=== PATIENT | female | born 1940 | race Caucasian/White ===

== ENCOUNTER → 2018-05-09 | Outpatient (CLI) | payer MEDICARE, MEDICAID ==
--- NOTE | 2018-05-09 11:42 | Diagnostic Imaging Report ---
INDICATION: Routine screening. COMPARISON: Comparison is made with prior mammograms from 04/07/2017 and 04/06/2016. TECHNIQUE: 2D and 3D bilateral screening mammography was performed with computer-aided detection (CAD) system. FINDINGS: Scattered fibroglandular densities are identified bilaterally. Benign-appearing parenchymal and vascular calcifications are identified bilaterally. The parenchymal pattern is stable. No dominant mass or malignant-appearing microcalcifications are seen. The axillae are unremarkable. IMPRESSION: No mammographic features suspicious for malignancy are identified. ACR BI-RADS Category 2: Benign findings. Result letter will be mailed to the patient. Note: At least 10% of breast cancer is not imaged by mammography. Dictated by: Dictated on workstation # [id number]
== END ==
LOC: RAD 09:26
PROVIDERS: ATTEND Internal Medicine
DX: Z12.31 Encounter for screening mammogram for malignant neoplasm of breast (principal)
CPT/HCPCS: 77067

== ENCOUNTER → 2019-05-10 | Outpatient (CLI) | payer MEDICARE, MEDICAID ==
--- NOTE | 2019-05-13 09:03 | Diagnostic Imaging Report ---
INDICATION: Screening The current study was also evaluated with a Computer Aided Detection (CAD) system. 3-D Tomographic imaging was also performed. Comparison made with prior examination of 05/09/2018, 04/07/2017, and 04/06/2016. FINDINGS: There are scattered fibroglandular densities bilaterally. There is unchanged architectural distortion in the upper-outer right breast where there also appears be a surgical clip. There are scattered vascular benign type calcifications. There is no new dominant mass, spiculated lesion or suspicious calcification identified. Skin, nipples and axilla are unremarkable. IMPRESSION: Category 2 benign. ACR BI-RADS Category 2: Benign findings. Result letter will be mailed to the patient. Note: At least 10% of breast cancer is not imaged by mammography. Dictated by: Dictated on workstation # [id number]
== END ==
LOC: RAD 09:55
PROVIDERS: ATTEND Pediatrics
DX: Z12.31 Encounter for screening mammogram for malignant neoplasm of breast (principal)
CPT/HCPCS: 77067

== ENCOUNTER → 2020-05-11 | Outpatient (CLI) | payer MEDICARE, MEDICAID ==
--- NOTE | 2020-05-11 10:43 | Diagnostic Imaging Report ---
INDICATION: Routine screening. COMPARISON: 05/10/2019 and 05/09/2018. TECHNIQUE: 2D and 3D bilateral screening mammography was performed with CAD. FINDINGS: Scattered fibroglandular densities are identified bilaterally. Post biopsy changes with architectural distortion in the upper outer right breast are again noted. No dominant mass or malignant appearing microcalcifications are seen. There are benign parenchymal and vascular calcifications bilaterally. Axillae are unremarkable. IMPRESSION: No mammographic features suspicious for malignancy are identified. ACR BI-RADS Category 2: Benign findings. Result letter will be mailed to the patient. Note: At least 10% of breast cancer is not imaged by mammography. Dictated by: Dictated on workstation # [id number]
== END ==
LOC: RAD 08:39
PROVIDERS: ATTEND Pediatrics
DX: Z12.31 Encounter for screening mammogram for malignant neoplasm of breast (principal)
CPT/HCPCS: 77063; 77067

== ENCOUNTER → 2021-01-05 | Outpatient (CLI) | payer MEDICARE, MEDICAID ==
--- NOTE | 2021-01-05 10:27 | Diagnostic Imaging Report ---
INDICATION: Postmenopausal screening for osteoporosis. COMPARISON: None. FINDINGS: AP Spine L1-L4: [BMD (g/cm2): 1.147] [T-Score: -0.4] [Z-Score: 0.2] [BMD Previous: NA] [BMD % Change: NA] LT Hip Neck: [BMD (g/cm2): 0.867] [T-Score: -1.2] [Z-Score: 0.2] LT Hip Total: [BMD (g/cm2):0.863] [T-Score:-0.4] [Z-Score: 0.9] [BMD Previous: NA] [BMD % Change: NA] RT Hip Neck: [BMD (g/cm2):0.783] [T-Score:-1.8] [Z-Score:-0.4] RT Hip Total: [BMD (g/cm2):0.896] [T-score:-0.9] [Z-Score:0.3] [BMD Previous:NA] [BMD % Change:NA] *Indicates significant change from prior examination based on 95% confidence level. World Health Organization criteria for BMD interpretation classify patients as Normal (T-score at or above -1.0), Osteopenic (T-score between -1.0 and -2.5) or Osteoporotic (T-score at or below -2.5). LIMITATIONS AND MODIFICATION: None. FRACTURE RISK (FRAX SCORE): The ten year probability of (%): Major Osteoporotic Fracture: [NA] Hip Fracture: [NA] IMPRESSION: 1. Normal bone mineral density. 2. Baseline examination. 3. See below National Osteoporosis Foundation guidelines on when to potentially initiate pharmacologic therapy. Based on the National Osteoporosis Foundation Guidelines, pharmacologic treatment should be initiated in any of the following, unless clinical conditions suggest otherwise: * Any patient with prior fragility fracture of the hip or vertebrae. A spine fracture indicates 5X risk for subsequent spine fracture and 2X risk for subsequent hip fracture. * Osteoporosis (T-score <-2.5). * Postmenopausal women and men age 50 and older with low bone mass/osteopenia (T-score between -1.0 and -2.5) by DXA and 10-year major osteoporotic fracture greater than 20% or a 10-year probability of hip fracture greater than 3%. These fracture risks are supplied above in the FRAX score, if applicable. * Clinician judgement and/or patient preferences may indicate treatment for people with 10-year fracture probabilities above or below these levels. Dictated by: Dictated on workstation # [id number]
== END ==
LOC: RAD 09:30
PROVIDERS: ATTEND Pediatrics
DX: Z13.820 Encounter for screening for osteoporosis (principal); M81.0 Age-related osteoporosis without current pathological fracture; Z78.0 Asymptomatic menopausal state
CPT/HCPCS: 77080

== ENCOUNTER → 2021-05-12 | Outpatient (CLI) | payer MEDICARE, MEDICAID ==
--- NOTE | 2021-05-12 11:19 | Diagnostic Imaging Report ---
INDICATION: Routine screening. COMPARISON: 05/11/2020 and 05/10/2019. TECHNIQUE: 2D and 3D bilateral screening mammography was performed with CAD. FINDINGS: Scattered fibroglandular densities are identified bilaterally. Post biopsy changes in the outer right breast are again noted and appear stable. Scattered benign parenchymal and vascular calcifications are noted bilaterally. No dominant mass or malignant-appearing microcalcifications are seen. The axillae are unremarkable. IMPRESSION: No mammographic features suspicious for malignancy are identified. ACR BI-RADS Category 2: Benign findings. Result letter will be mailed to the patient. Note: At least 10% of breast cancer is not imaged by mammography. Dictated by: Dictated on workstation # [id number]
== END ==
LOC: RAD 10:00
PROVIDERS: ATTEND Pediatrics
DX: Z12.31 Encounter for screening mammogram for malignant neoplasm of breast (principal)
CPT/HCPCS: 77063; 77067

== ENCOUNTER 2021-05-21 10:40 | Outpatient (CLI) | payer MEDICARE, MEDICAID ==
[~2021-05-21] VITALS: Ht 170.2 cm; Wt 111.1 kg
[2021-05-21 10:47] VITALS: BP 93/49
[2021-05-21] MEDS ORDERED: BAMLANIVIMAB 700 MG/ETESEVIMAB 1,400 MG IN NS IV ONE ×3 (11:15)
[2021-05-21] MEDS ORDERED: ONDANSETRON 4 MG/2 ML (SDV) Z0FRAN IV PRN (11:15)
[2021-05-21] MEDS ORDERED: diphenhydrAMINE 50 MG/ML INJ (BENADRYL) IV PRN (11:15)
[2021-05-21] MEDS ORDERED: ACETAMINOPHEN 500 MG TAB (TYLENOL) PO PRN (11:15)
[2021-05-21] MEDS ORDERED: EPINEPHrine INJECTION 1 MG/ML AMP IM PRN (11:15)
[2021-05-21 12:20] VITALS: BP 100/54
== END 2021-05-21 12:54 | disposition home or self-care (01) ==
LOC: INFUSION 10:40
PROVIDERS: ATTEND Pediatrics
DX: U07.1 COVID-19 (principal)

== ENCOUNTER 2021-05-24 07:35 | Emergency (ER) | payer MEDICARE, MEDICAID ==
[~2021-05-24] VITALS: Ht 170 cm; Wt 111.0 kg
[2021-05-24 08:13] LABS: BASOPHILS % (AUTO) 1 % (0-10); EOSINOPHILS # (AUTO) 0.3 10^3/uL (0.0-0.3); EOSINOPHILS % (AUTO) 4 % (0-10); HEMATOCRIT 43 % (35-52); HEMOGLOBIN 14.2 g/dL (11.5-16.0); LYMPHOCYTES # (AUTO) 2.9 10^3/uL (1.0-4.0); LYMPHOCYTES % (AUTO) 36 % (12-44); MEAN CORPUSCULAR HEMOGLOBIN 33 pg (25-34); MEAN CORPUSCULAR HGB CONC 33 g/dL (32-36); MEAN CORPUSCULAR VOLUME 100 fL (80-99); MEAN PLATELET VOLUME 9.6 fL (9.0-12.2); MONOCYTES # (AUTO) 0.9 10^3/uL (0.0-1.0); MONOCYTES % (AUTO) 12 % (0-12); NEUTROPHILS # (AUTO) 3.9 10^3/uL (1.8-7.8); NEUTROPHILS % (AUTO) 47 % (42-75); PLATELET COUNT 341 10^3/uL (130-400); WHITE BLOOD COUNT 8.1 10^3/uL (4.3-11.0)
[2021-05-24] MEDS ORDERED: LACTATED RINGERS 1,000 ML IV ONE (08:15)
[2021-05-24 08:22] LABS: ALBUMIN 3.3 GM/DL (3.2-4.5); POTASSIUM 3.8 MMOL/L (3.6-5.0)
[2021-05-24 08:23] LABS: CALCIUM 8.4 MG/DL (8.5-10.1)
[2021-05-24 08:24] LABS: TOTAL PROTEIN 6.3 GM/DL (6.4-8.2)
[2021-05-24 08:26] LABS: BILIRUBIN,TOTAL 0.5 MG/DL (0.1-1.0)
[2021-05-24 08:28] LABS: CREATININE SERUM 0.7 MG/DL (0.60-1.30)
--- NOTE | 2021-05-24 08:31 | Diagnostic Imaging Report ---
Indication: Diarrhea, weakness, this is a COVID patient. I have no priors. Findings: There are multifocal patchy vague bilateral infiltrates, which while nonspecific are congruent with the provided history of COVID. No effusion, pneumothorax or failure pattern. Impression: Bilateral multifocal pulmonary infiltrates without pleural pathology or failure pattern. Dictated by: Dictated on workstation # [id number]
--- NOTE | 2021-05-24 08:40 | ED General ---
General Chief Complaint: COVID19 Suspect/Confirmed Stated Complaint: COVID + Nursing Triage Note: PT ARRIVED PER [facility] TODAY, PT COVID + ON 05/19/21, STATES ILLNESS STARTED ON 05/13/21. DENIES FEVERS OR COUGH AT THIS X. Source of Information: Patient, EMS, Old Records Exam Limitations: No Limitations History of Present Illness Date Seen by Provider: May 24, 2021 Time Seen by Provider: 07:40 Initial Comments This 81-year-old woman with confirmed COVID-19 illness presents to the emergency room with complaints of diarrhea, weakness, and dizziness today. She was diagnosed on May 19 and has been ill since May 13. She did receive a monoclonal antibody infusion on the . She is feeling better at this time. Vital signs are stable and she is not hypoxic. She reports having a profound episode of diarrhea at the time of the weakness and dizziness. She is not in any significant pain. She was fully vaccinated. She also complains of sensation of paresthesia that seems migratory. At times it feels like it is in her sinuses. At other times it feels like it is in her chest and radiating through her left arm or up with her neck. This has been ongoing for the past few days. Allergies and Home Medications Allergies Coded Allergies: codeine (Verified Allergy, Unknown, 05/21/21) Patient Home Medication List Home Medication List Reviewed: Yes Cefdinir (Cefdinir) 300 Mg Capsule, 300 MG PO BID Prescribed by: MARBIN MILIAN on 05/24/21 1134 Hyoscyamine Sulfate (Levsin-Sl) 0.125 Mg Tab.subl, 0.125 MG SL Q4H PRN for CRAMPS Prescribed by: MARBIN MILIAN on 05/24/21 1134 Review of Systems Review of Systems Constitutional: see HPI EENTM: no symptoms reported Respiratory: no symptoms reported Cardiovascular: see HPI Gastrointestinal: see HPI Genitourinary: no symptoms reported : No Musculoskeletal: no symptoms reported Skin: no symptoms reported Psychiatric/Neurological: See HPI Hematologic/Lymphatic: No Symptoms Reported Immunological/Allergic: no symptoms reported Past Oqpgtvv-Hkbbog-Rdseti Hx Patient Social History Tobacco Use?: No Smoking Status: Former Smoker Substance use?: No Alcohol Use?: No Seasonal Allergies Seasonal Allergies: No Past Medical History Surgeries: No (None reported) Respiratory: Yes (COVID-23 May 2021) Cardiac: Yes High Cholesterol Neurological: No : No Genitourinary: No Gastrointestinal: No Musculoskeletal: No Endocrine: No HEENT: No Cancer: No Psychosocial: No Integumentary: No Physical Exam Vital Signs Vital Signs - First Documented 05/24/21 07:35 Temp 36.4 Pulse 71 Resp 18 B/P (MAP) 128/74 (92) Pulse Ox 95 Capillary Refill : Less Than 3 Seconds Height, Weight, BMI Height: '" Weight: lbs. oz. kg; 38.00 BMI Method: General Appearance: WD/WN, Mild Distress (Tearful), Obese Eyes: Bilateral Eye Normal Inspection, Bilateral Eye PERRL, Bilateral Eye EOMI HEENT: PERRL/EOMI, Normal ENT Inspection, Other (Oropharynx somewhat dry) Neck: Normal Inspection; No JVD Respiratory: Lungs Clear, Normal Breath Sounds, No Accessory Muscle Use Cardiovascular: Regular Rate, Rhythm, No Edema, No Murmur Gastrointestinal: No Organomegaly, No Pulsatile Mass, Non Tender Genital/Rectal: No Normal Genital Exam Extremity: No Pedal Edema Neurologic/Psychiatric: Alert, Oriented x3, No Motor/Sensory Deficits, Normal 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, 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 Norm as Tested Skin: Normal Color, Warm/Dry Progress/Results/Core Measures Suspected Sepsis SIRS Temperature: Pulse: 71 Respiratory Rate: 18 Laboratory Tests 05/24/21 07:52: White Blood Count 8.1 Blood Pressure 128 /74 Mean: 92 Laboratory Tests 05/24/21 07:52: Creatinine 0.70, INR Comment 1.0, Platelet Count 341, Total Bilirubin 0.5 Results/Orders Lab Results Laboratory Tests Test 05/24/21 07:52 05/24/21 11:02 Range/Units White Blood Count 8.1 4.3-11.0 10^3/uL Red Blood Count 4.31 3.80-5.11 10^6/uL Hemoglobin 14.2 11.5-16.0 g/dL Hematocrit 43 35-52 % Mean Corpuscular Volume 100 H 80-99 fL Mean Corpuscular Hemoglobin 33 25-34 pg Mean Corpuscular Hemoglobin Concent 33 32-36 g/dL Red Cell Distribution Width 12.2 10.0-14.5 % Platelet Count 341 130-400 10^3/uL Mean Platelet Volume 9.6 9.0-12.2 fL Immature Granulocyte % (Auto) 1 % Neutrophils (%) (Auto) 47 42-75 % Lymphocytes (%) (Auto) 36 12-44 % Monocytes (%) (Auto) 12 0-12 % Eosinophils (%) (Auto) 4 0-10 % Basophils (%) (Auto) 1 0-10 % Neutrophils # (Auto) 3.9 1.8-7.8 10^3/uL Lymphocytes # (Auto) 2.9 1.0-4.0 10^3/uL Monocytes # (Auto) 0.9 0.0-1.0 10^3/uL Eosinophils # (Auto) 0.3 0.0-0.3 10^3/uL Basophils # (Auto) 0.0 0.0-0.1 10^3/uL Immature Granulocyte # (Auto) 0.1 0.0-0.1 10^3/uL Prothrombin Time 13.1 12.2-14.7 SEC INR Comment 1.0 0.8-1.4 Activated Partial Thromboplast Time 24 24-35 SEC Sodium Level 137 135-145 MMOL/L Potassium Level 3.8 3.6-5.0 MMOL/L Chloride Level 105 98-107 MMOL/L Carbon Dioxide Level 21 21-32 MMOL/L Anion Gap 11 5-14 MMOL/L Blood Urea Nitrogen 15 7-18 MG/DL Creatinine 0.70 0.60-1.30 MG/DL Estimat Glomerular Filtration Rate 80 BUN/Creatinine Ratio 21 Glucose Level 127 H 70-105 MG/DL Calcium Level 8.4 L 8.5-10.1 MG/DL Corrected Calcium 9.0 8.5-10.1 MG/DL Magnesium Level 2.0 1.6-2.4 MG/DL Total Bilirubin 0.5 0.1-1.0 MG/DL Aspartate Amino Transf (AST/SGOT) 24 5-34 U/L Alanine Aminotransferase (ALT/SGPT) 15 0-55 U/L Alkaline Phosphatase 67 40-136 U/L Myoglobin 59.2 10.0-92.0 NG/ML Troponin I < 0.028 <0.028 NG/ML Total Protein 6.3 L 6.4-8.2 GM/DL Albumin 3.3 3.2-4.5 GM/DL Thyroid Stimulating Hormone (TSH) 3.91 0.35-4.94 UIU/ML Free Thyroxine 1.02 0.70-1.48 NG/DL Urine Color DARK YELLOW Urine Clarity CLOUDY Urine pH 7.5 5-9 Urine Specific [place] 1.015 L 1.016-1.022 Urine Protein NEGATIVE NEGATIVE Urine Glucose (UA) NEGATIVE NEGATIVE Urine Ketones NEGATIVE NEGATIVE Urine Nitrite POSITIVE H NEGATIVE Urine Bilirubin NEGATIVE NEGATIVE Urine Urobilinogen 1.0 < = 1.0 MG/DL Urine Leukocyte Esterase TRACE H NEGATIVE Urine RBC (Auto) NEGATIVE NEGATIVE Urine RBC NONE /HPF Urine WBC 10-25 H /HPF Urine Squamous Epithelial Cells 2-5 /HPF Urine Crystals NONE /LPF Urine Bacteria LARGE H /HPF Urine Casts PRESENT /LPF Urine Hyaline Casts RARE /LPF Urine Mucus SMALL H /LPF Urine Culture Indicated YES My Orders Orders - MARBIN BECKHAM MD Cbc With Automated Diff (05/24/21 08:05) Magnesium (05/24/21 08:05) Chest 1 View, Ap/Pa Only (05/24/21 08:05) Ekg Tracing (05/24/21 08:05) Comprehensive Metabolic Panel (05/24/21 08:05) Myoglobin Serum (05/24/21 08:05) Protime With Inr (05/24/21 08:05) Partial Thromboplastin Time (05/24/21 08:05) O2 (05/24/21 08:05) Monitor-Rhythm Ecg Trace Only (05/24/21 08:05) Ed Iv/Invasive Line Start (05/24/21 08:05) Troponin I [place] (05/24/21 08:05) Lactated Ringers (Lr 1000 Ml Iv Solution (05/24/21 08:15) Free T4 (Free Thyroxine) (05/24/21 08:05) Thyroid Stimulating Hormone (05/24/21 08:05) Ct Head/Cervical Spine Wo (05/24/21 09:40) Ua Culture If Indicated (05/24/21 10:00) Urine Culture (05/24/21 11:02) Ceftriaxone (Rocephin) (05/24/21 11:31) Lidocaine 1% Inj 20 Ml (Xylocaine 1% Inj (05/24/21 11:31) Medications Given in ED Current Medications Medications Dose Ordered Sig/Timothy Route Start Time Stop Time Status Last Admin Dose Admin Ceftriaxone Sodium 1,000 mg STK-MED ONCE .ROUTE 05/24/21 11:31 05/24/21 11:32 DC 05/24/21 11:30 1,000 MG Lactated Ringer's 1,000 ml @ 0 mls/hr Q0M ONCE IV 05/24/21 08:15 05/24/21 08:16 DC 05/24/21 08:13 1,000 MLS/HR Lidocaine HCl 20 ml STK-MED ONCE .ROUTE 05/24/21 11:31 05/24/21 11:32 DC 05/24/21 11:30 2.1 ML Vital Signs/I&O 05/24/21 05/24/21 07:35 11:21 Temp 36.4 Pulse 71 60 Resp 18 18 B/P (MAP) 128/74 (92) 117/77 Pulse Ox 95 95 Capillary Refill : Less Than 3 Seconds Blood Pressure Mean: 92 Progress Note : Time: 18:39 Progress Note Patient was hydrated with a liter of IV fluid. Work-up was relatively unremarkable. She was concerned about these paresthesias in her left arm neck and head. She was offered CT scan which showed no acute abnormalities or no definite explanation for the paresthesias. I suspect the paresthesias are part of her Covid syndrome. Suggestion of urinary tract infection was found on urinalysis. Treatment was started with an injection of Rocephin. ECG Initial ECG Impression Date: May 24, 2021 Initial ECG Impression Time: 07:48 Initial ECG Rate: 68 Initial ECG Rhythm: Normal Sinus Initial ECG Intervals: Normal Initial ECG Impression: Normal Comment Normal sinus rhythm with no ST elevation or depression. No abnormal intervals or axis deviation. Diagnostic Imaging Diagonstic Imaging: Xray Comments Chest x-ray viewed by me and report reviewed. See report below: NAME: DELFIN TY MED REC#: [id number] PT STATUS: REG ER : 1940 PHYSICIAN: MARBIN BECKHAM MD ADMIT DATE: 05/24/21/ER Draft Date of Exam:05/24/21 CHEST 1 VIEW, AP/PA ONLY Indication: Diarrhea, weakness, this is a COVID patient. I have no priors. Findings: There are multifocal patchy vague bilateral infiltrates, which while nonspecific are congruent with the provided history of COVID. No effusion, pneumothorax or failure pattern. Impression: Bilateral multifocal pulmonary infiltrates without pleural pathology or failure pattern. Dictated on workstation # [id number] Dict: 05/24/21827 Trans: 05/24/21830 CV [id number] Interpreted by: MICHEAL SZYMANSKI Diagonstic Imaging: CT Plain Films/CT/US/NM/MRI: c-spine, head Comments NAME: DELFIN TY [facility] REC#: [id number] PT STATUS: DEP ER : 1940 PHYSICIAN: MARBIN BECKHAM MD ADMIT DATE: 05/24/21/ER Signed Date of Exam:05/24/21 CT HEAD/CERVICAL SPINE WO PROCEDURE: CT head and CT cervical spine without contrast. TECHNIQUE: Multiple contiguous axial images were obtained through the brain and cervical spine without the use of intravenous contrast. Sagittal and coronal reformations through the cervical spine were then performed. Auto Exposure Controls were utilized during the CT exam to meet ALARA standards for radiation dose reduction. INDICATION: Headache and neck pain as well as left arm paresthesias. No prior studies are available for comparison. CT HEAD: Ventricles and sulci are within normal limits. No sulcal effacement or midline shift is identified. Mild periventricular white matter changes are noted, likely on the basis of chronic microvascular ischemia. No acute intra-axial or extra-axial hemorrhage is detected. Cisterns are patent. Visualized paranasal sinuses appear clear. IMPRESSION: No acute intracranial process is detected. CT CERVICAL SPINE: There is some straightening of the normal cervical lordotic curvature. Minimal anterolisthesis of C3 on C4 is noted. Minimal retrolisthesis C4 on C5. Multilevel degenerative disc disease is seen with variable disc space narrowing and marginal spurring. There is multilevel facet arthropathy. Significant left-sided neural foraminal narrowing C3-C4 level is noted due to end plate osteophytes and hypertrophic facet joint degenerative changes. There is significant bilateral neural foraminal stenosis C4-C5 and C5-C6 levels. No fractures are identified. Prevertebral tissues are normal. Odontoid is intact. IMPRESSION: Cervical spondylosis with multilevel neural foraminal stenosis. No acute bony abnormality is detected. Dictated by: Dictated on workstation # [id number] Dict: 05/24/21 1019 Trans: 05/24/21 1549 [facility] [id number] Interpreted by: MOIRA YUSUF MD Electronically signed by: MOIRA YUSUF MD 05/24/21 1549 Reviewed: Reviewed by Me Departure Impression Primary Impression: COVID-19 Additional Impressions: Lightheadedness Diarrhea Qualified Codes: R19.7 - Diarrhea, unspecified Urinary tract infection Qualified Codes: N39.0 - Urinary tract infection, site not specified Paresthesias Disposition: HOME, SELF-CARE Condition: Improved Departure-Patient Inst. Decision time for Depature: 11:31 Referrals: EUN WERNER MD (PCP/Family) Primary Care Physician Patient Instructions: Urinary Tract Infections in Adults, COVID-19 ED Add. Discharge Instructions: Drink plenty of clear liquids to stay well-hydrated. Avoid dairy products or fatty or greasy foods for a few days until you know the diarrhea has passed. Start your antibiotics sometime tomorrow for treatment of urinary tract infection. Follow-up with your primary care provider next week. The paresthesias in your chest, shoulder, and arm could be related to COVID-19. However, they could also be related to problems with nerve compression in your neck. Discussed this with your primary care provider in follow-up. If further evaluation is needed, you may need to discuss obtaining an MRI of the head and neck. Call with questions or concerns. If you continue to have problems with diarrhea and/or abdominal cramping, you may use Levsin as prescribed or try Imodium [id number]. Return to the ER if you have worsening symptoms. All discharge instructions reviewed with patient and/or family. Voiced understanding. Scripts Cefdinir (Cefdinir) 300 Mg Capsule 300 MG PO BID, #14 CAP Prov: MARBIN BECKHAM MD 05/24/21 Hyoscyamine Sulfate (Levsin-Sl) 0.125 Mg Tab.subl 0.125 MG SL Q4H PRN for CRAMPS, #10 TAB 0 Refills For abdominal cramping or diarrhea Prov: MARBIN BECKHAM MD 05/24/21 Copy Copies To 1: EUN WERNER MD, JOSHUA T MD May 24, 2021 08:40
[2021-05-24 08:44] LABS: PROTHROMBIN TIME PATIENT 13.1 SEC (12.2-14.7)
[2021-05-24 08:54] LABS: FREE T4 (FREE THYROXINE) 1.02 NG/DL (0.70-1.48)
--- NOTE | 2021-05-24 10:27 | Diagnostic Imaging Report ---
PROCEDURE: CT head and CT cervical spine without contrast. TECHNIQUE: Multiple contiguous axial images were obtained through the brain and cervical spine without the use of intravenous contrast. Sagittal and coronal reformations through the cervical spine were then performed. Auto Exposure Controls were utilized during the CT exam to meet ALARA standards for radiation dose reduction. INDICATION: Headache and neck pain as well as left arm paresthesias. No prior studies are available for comparison. CT HEAD: Ventricles and sulci are within normal limits. No sulcal effacement or midline shift is identified. Mild periventricular white matter changes are noted, likely on the basis of chronic microvascular ischemia. No acute intra-axial or extra-axial hemorrhage is detected. Cisterns are patent. Visualized paranasal sinuses appear clear. IMPRESSION: No acute intracranial process is detected. CT CERVICAL SPINE: There is some straightening of the normal cervical lordotic curvature. Minimal anterolisthesis of C3 on C4 is noted. Minimal retrolisthesis C4 on C5. Multilevel degenerative disc disease is seen with variable disc space narrowing and marginal spurring. There is multilevel facet arthropathy. Significant left-sided neural foraminal narrowing C3-C4 level is noted due to end plate osteophytes and hypertrophic facet joint degenerative changes. There is significant bilateral neural foraminal stenosis C4-C5 and C5-C6 levels. No fractures are identified. Prevertebral tissues are normal. Odontoid is intact. IMPRESSION: Cervical spondylosis with multilevel neural foraminal stenosis. No acute bony abnormality is detected. Dictated by: Dictated on workstation # [id number]
[2021-05-24 11:09] LABS: BILIRUBIN,URINE NEGATIVE (NEGATIVE); CLARITY,URINE CLOUDY; COLOR,URINE DARK YELLOW; GLUCOSE, URINE (UA) NEGATIVE (NEGATIVE); KETONES,URINE NEGATIVE (NEGATIVE); LEUKOCYTE ESTERASE ,URINE TRACE (NEGATIVE); NITRITE,URINE POSITIVE (NEGATIVE); PH,URINE 7.5 (5-9); PROTEIN,URINE NEGATIVE (NEGATIVE)
[2021-05-24 11:21] VITALS: BP 117/77
[2021-05-24 11:24] LABS: BACTERIA,URINE LARGE /HPF; HYALINE CASTS, URINE RARE /LPF
[2021-05-24] MEDS ORDERED: cefTRIAXone 1,000 MG VIAL ONE (11:31)
[2021-05-24] MEDS ORDERED: LIDOCAINE 1% INJ 20 ML 20 ML VIAL ONE (11:31)
[2021-05-24] MEDS ORDERED: CEFD300C3 PO (11:34)
[2021-05-24] MEDS ORDERED: HYOS0.1283 SL (11:34)
== END 2021-05-24 11:39 | disposition home or self-care (01) ==
LOC: EDUNIT# 07:35 → ER 07:40
DX: U07.1 COVID-19 (principal); R42 Dizziness and giddiness; N39.0 Urinary tract infection, site not specified; R20.2 Paresthesia of skin; E66.9 Obesity, unspecified; Z68.38 Body mass index [BMI] 38.0-38.9, adult; Z87.891 Personal history of nicotine dependence
CPT/HCPCS: 36415; 70450; 71045; 72125; 80053; 81000; 83735; 83874; 84439; 84443; 84484; 85025; 85610; 85730; 87077; 87088; 87186; 93005; 93041

== ENCOUNTER → 2021-06-09 | Outpatient (CLI) | payer MEDICARE, MEDICAID ==
[~2021-06-09] MED LIST: CATHETER FLUSH 10 ML SYR IV PRN; CEFD300C3 PO; HOLD METFORMIN - RECEIVED CONTRAST 20 ML VIAL IV SCH; HYOS0.1283 SL; IOHEXOL 350 MG/ML 100 ML (OMNIPAQUE 350) VIAL IV ONE; NS 100 ML (IVPB) BAG IV ONE
--- NOTE | 2021-06-09 11:22 | Diagnostic Imaging Report ---
PROCEDURE: CT chest with contrast only. TECHNIQUE: Multiple contiguous axial images were obtained through the chest after administration of intravenous contrast. Auto Exposure Controls were utilized during the CT exam to meet ALARA standards for radiation dose reduction. INDICATION: Covid infection. FINDINGS: There is mild peripheral interstitial and groundglass density in the lungs bilaterally. There is no consolidation. No significant pleural or pericardial fluid is identified. There is no evidence of pathologically enlarged adenopathy. There is mild aortic atherosclerotic calcification. Occasional punctate calcified granulomas are also noted. There is advanced degenerative change in the shoulders, greater on the right. IMPRESSION: Mild predominantly peripheral interstitial and groundglass density which could represent chronic pneumonitis or scarring. Otherwise no acute abnormality is detected. Dictated by: Dictated on workstation # [id number]
== END ==
LOC: RAD 10:19
PROVIDERS: ATTEND Pediatrics
DX: J84.9 Interstitial pulmonary disease, unspecified (principal); U09.9 Post COVID-19 condition, unspecified
CPT/HCPCS: 71260

== ENCOUNTER → 2022-05-23 | Outpatient (CLI) | payer MEDICARE, MEDICAID ==
[~2022-05-23] MED LIST changes: -CATHETER FLUSH 10 ML SYR IV PRN; -HOLD METFORMIN - RECEIVED CONTRAST 20 ML VIAL IV SCH; -IOHEXOL 350 MG/ML 100 ML (OMNIPAQUE 350) VIAL IV ONE; -NS 100 ML (IVPB) BAG IV ONE
--- NOTE | 2022-05-23 11:20 | Diagnostic Imaging Report ---
INDICATION: Routine screening. COMPARISON: 05/12/2021 and 05/11/2020. TECHNIQUE: 2D and 3D bilateral screening mammography was performed with CAD. FINDINGS: Scattered fibroglandular densities are identified bilaterally. Post therapeutic changes in the right breast appear stable. No mass or malignant-appearing microcalcifications are seen. There are benign parenchymal and vascular calcifications bilaterally. The axillae are unremarkable. IMPRESSION: No mammographic features suspicious for malignancy are identified. ACR BI-RADS Category 2: Benign findings. Result letter will be mailed to the patient. Note: At least 10% of breast cancer is not imaged by mammography. Dictated by: Dictated on workstation # [id number]
== END ==
LOC: RAD 09:33
PROVIDERS: ATTEND Pediatrics
DX: Z12.31 Encounter for screening mammogram for malignant neoplasm of breast (principal)
CPT/HCPCS: 77063; 77067